=== PATIENT | female | born 1995 | race American Indian/Alaskan Native ===

== ENCOUNTER 2022-07-29 18:56 | Emergency (ER) | payer OTHER ==
[2022-07-29] MEDS ORDERED: Iopamidol 612 MG/ML 100 ML Bottle IVPUSH ONE (19:40)
[2022-07-29 19:41] LABS: METHAMPHETAMINES,URINE NEGATIVE (NEGATIVE)
[2022-07-29 19:42] LABS: AMPHETAMINES,URINE NEGATIVE (NEGATIVE); BARBITURATES,URINE NEGATIVE (NEGATIVE); BENZODIAZEPINE,URINE NEGATIVE (NEGATIVE); MDMA (ECSTASY), URINE NEGATIVE (NEGATIVE); METHADONE,URINE NEGATIVE (NEGATIVE); OPIATES,URINE NEGATIVE (NEGATIVE); OXYCODONE,URINE NEGATIVE (NEGATIVE); PHENCYCLIDINE,URINE NEGATIVE (NEGATIVE); TCA,URINE NEGATIVE (NEGATIVE)
[2022-07-29 19:49] LABS: ANION GAP 13.5 mEq/L (7-13); CHLORIDE,CL 103 mmol/L (98-107); SODIUM,NA 139 mmol/L (136-145)
[2022-07-29 19:54] LABS: ESTIMATED GFR 128 mL/min (>=60)
[2022-07-29] MEDS ORDERED: fentaNYL 100 MCG/2 ML SDV IVPUSH ONE ×2 (20:34→20:52)
[2022-07-29] MEDS ORDERED: LORazepam 2 MG/ML SDV IVPUSH ONE ×2 (20:35→20:53)
[2022-07-29] MEDS ORDERED: metroNIDAZOLE 250 MG Tab PO ONE ×2 (21:35→22:45)
== END 2022-07-29 23:20 | disposition home or self-care (01) ==
LOC: DL.ED 18:56
DX: S30.1XXA Contusion of abdominal wall, initial encounter (principal); R74.01 Elevation of levels of liver transaminase levels; A59.00 Urogenital trichomoniasis, unspecified; V49.50XA Passenger injured in collision with unspecified motor vehicles in traffic accident, initial encounter; Y92.410 Unspecified street and highway as the place of occurrence of the external cause
CPT/HCPCS: 36415; 70450; 71270; 72125; 74178; 80053; 80305; 81001; 81025; 83735; 85025; 87086; 96374; 96375; 99284; A9270; C1758; J2060; J3010; Q9967

== ENCOUNTER 2022-07-30 11:37 | Emergency (ER) | payer OTHER ==
[2022-07-30] MEDS ORDERED: Orphenadrine 60 MG/2 ML Inj IM ONE (12:04)
[2022-07-30] MEDS ORDERED: Ketorolac 30 MG/ML SDV IM ONE (12:04)
[2022-07-30] MEDS ORDERED: traMADol 50 MG Tab PO ONE (12:05)
== END 2022-07-30 12:34 | disposition home or self-care (01) ==
LOC: DL.ED 11:37
DX: S30.0XXA Contusion of lower back and pelvis, initial encounter (principal); S10.93XA Contusion of unspecified part of neck, initial encounter; F17.210 Nicotine dependence, cigarettes, uncomplicated; Z88.8 Allergy status to other drugs, medicaments and biological substances; V49.40XA Driver injured in collision with unspecified motor vehicles in traffic accident, initial encounter; Y92.410 Unspecified street and highway as the place of occurrence of the external cause
CPT/HCPCS: 96372; 99283; A9270; J1885; J2360

== ENCOUNTER 2023-09-02 13:49 | Emergency (ER) | payer OTHER ==
[2023-09-02 14:52] LABS: CORONAVIRUS COVID-19 NAA NEGATIVE (NEGATIVE); INFLUENZA A NAA NEGATIVE (NEGATIVE); INFLUENZA B NAA NEGATIVE (NEGATIVE); RESPIRATORY SYNCYTIAL VIR NAA NEGATIVE (NEGATIVE)
== END 2023-09-02 15:18 | disposition home or self-care (01) ==
LOC: DL.ED 13:49
DX: B34.9 Viral infection, unspecified (principal); Z88.1 Allergy status to other antibiotic agents; Z86.16 Personal history of COVID-19
CPT/HCPCS: 0241U; 99283

== ENCOUNTER 2023-11-01 22:48 | Emergency (ER) | payer SELFPAY ==
[2023-11-01] MEDS ORDERED: Penicillin V Potassium 250 MG Tab PO ONE (23:45)
[2023-11-01] MEDS: Lidocaine 1% with EPINEPHrine 1:100,000 20 ML MDV INJECT ONE (23:48)
[2023-11-01] MEDS: Bupivacaine 0.5%/EPINEPHrine 1:200,000 10 ML SDV INJECT ONE (23:48)
[2023-11-02] MEDS: Penicillin V Potassium 250 MG Tab PO ONE (00:07)
[2023-11-02] MEDS: Take Home: Amoxicillin/Clavulanate K 875-125 MG Tab, 6 Tab Pack PO ONE (00:15)
[2023-11-02] MEDS ORDERED: Penicillin V Potassium 250 MG Tab PO ONE (23:49)
== END 2023-11-02 00:19 | disposition home or self-care (01) ==
LOC: DL.ED 22:48
DX: K02.9 Dental caries, unspecified (principal); F17.210 Nicotine dependence, cigarettes, uncomplicated; Z88.1 Allergy status to other antibiotic agents; Z86.16 Personal history of COVID-19
CPT/HCPCS: 64400; 99282; A9270; J3490

== ENCOUNTER 2023-11-25 08:09 | Emergency (ER) | payer SELFPAY ==
[2023-11-25] MEDS: Sodium Chloride 0.9% 10 ML Syringe FLUSH PRN (08:57)
[2023-11-25] MEDS: Sodium Chloride 0.9% 1,000 ML IV ONE (08:57)
[2023-11-25] MEDS: Ondansetron 4 MG/2 ML SDV IV ONE (08:57)
[2023-11-25 08:58] LABS: CORONAVIRUS COVID-19 NAA NEGATIVE (NEGATIVE); INFLUENZA A NAA NEGATIVE (NEGATIVE); INFLUENZA B NAA NEGATIVE (NEGATIVE); RESPIRATORY SYNCYTIAL VIR NAA NEGATIVE (NEGATIVE)
[2023-11-25 09:01] LABS: BASOPHILS PERCENT AUTO 0.3 % (0.0-1.0); EOSINOPHILS PERCENT AUTO 0.6 % (1.0-3.0); HEMATOCRIT 40.7 % (37.0-47.0); LYMPHOCYTES PERCENT AUTO 30.8 % (20.5-50.1); MEAN CORPUSCULAR HEMOGLOBIN 30.6 pg (27.0-34.0); MEAN CORPUSCULAR HGB CONC 34.4 g/dL (33.0-35.0); MEAN CORPUSCULAR VOLUME 89.1 fL (80-100); MONOCYTES PERCENT AUTO 7.8 % (2-8); NEUTROPHILS PERCENT AUTO 60.5 % (42.2-75.2); PLATELET COUNT,PLT 190 10^3/uL (150-450); RED BLOOD CELL COUNT 4.57 10^6/uL (4.2-5.4); WHITE BLOOD CELL COUNT,WBC 7.9 10^3/uL (5.0-10.0)
[2023-11-25 09:22] LABS: A/G RATIO 1.2; ALBUMIN 4.2 g/dL (3.4-5.0); ANION GAP 15.6 mEq/L (7-13); BILIRUBIN TOTAL 0.7 mg/dL (0.2-1.0); BUN/CREATININE RATIO 15.5 (No establ ref range); CALCIUM 8.9 mg/dL (8.5-10.1); CREATININE 0.58 mg/dL (0.55-1.02); EST CRCL DRUG DOSING (CG) 129.94 mL/min; POTASSIUM,K 3.6 mmol/L (3.5-5.1); PROTEIN TOTAL,TP 7.7 g/dL (6.4-8.2)
[2023-11-25 09:39] LABS: APPEARANCE,URINE CLEAR (CLEAR); BILIRUBIN,URINE NEGATIVE (NEGATIVE); COLOR,URINE YELLOW (YELLOW); GLUCOSE,URINE NEGATIVE (NEGATIVE); KETONES,URINE NEGATIVE (NEGATIVE); LEUKOCYTE ESTERASE,URINE NEGATIVE (NEGATIVE); NITRITE,URINE NEGATIVE (NEGATIVE); OCCULT BLOOD,URINE MODERATE (NEGATIVE); PH,URINE 6.5 (5.0-9.0); PROTEIN,URINE NEGATIVE (NEGATIVE); UROBILINOGEN,URINE 0.2 mg/dL (0.2-1.0)
[2023-11-25 09:49] LABS: AMORPHOUS SEDIMENT,URINE FEW /HPF (NOT SEEN); BACTERIA,URINE FEW /HPF (0-FEW/HPF); EPITHELIAL CELLS,URINE MODERATE /HPF (NOT SEEN); MUCUS,URINE MODERATE /LPF (NOT SEEN); RBC,URINE 0-5 /HPF (0-5); WBC,URINE NOT SEEN /HPF (0-5/HPF)
== END 2023-11-25 09:58 | disposition home or self-care (01) ==
LOC: DL.ED 08:09
DX: K52.9 Noninfective gastroenteritis and colitis, unspecified (principal); Z88.1 Allergy status to other antibiotic agents; Z86.16 Personal history of COVID-19
CPT/HCPCS: 0241U; 36415; 80053; 81001; 81025; 85025; 87081; 87430; 96361; 96374; 99283; 99284-25; J2405; J3490; J7030

== ENCOUNTER 2024-01-16 18:18 | Emergency (ER) | payer SELFPAY ==
[2024-01-16] MEDS: Ketorolac 30 MG/ML SDV IM ONE (18:36)
[2024-01-16] MEDS: Amoxicillin/Clavulanate K 875-125 MG Tab PO ONE (18:43)
== END 2024-01-16 18:50 | disposition home or self-care (01) ==
LOC: DL.ED 18:18
DX: K04.7 Periapical abscess without sinus (principal); K05.10 Chronic gingivitis, plaque induced; K66.9 Disorder of peritoneum, unspecified; Z86.16 Personal history of COVID-19; Z88.8 Allergy status to other drugs, medicaments and biological substances
CPT/HCPCS: 96372; 99282; A9270; J1885

== ENCOUNTER 2024-04-21 19:47 | Emergency (ER) | payer MEDICAID ==
[2024-04-21 20:01] LABS: APPEARANCE,URINE CLEAR (CLEAR); BILIRUBIN,URINE NEGATIVE (NEGATIVE); COLOR,URINE YELLOW (YELLOW); GLUCOSE,URINE NEGATIVE (NEGATIVE); KETONES,URINE NEGATIVE (NEGATIVE); LEUKOCYTE ESTERASE,URINE TRACE (NEGATIVE); NITRITE,URINE NEGATIVE (NEGATIVE); OCCULT BLOOD,URINE NEGATIVE (NEGATIVE); PH,URINE 6.5 (5.0-9.0); PROTEIN,URINE NEGATIVE (NEGATIVE); UROBILINOGEN,URINE 0.2 mg/dL (0.2-1.0)
[2024-04-21 20:15] LABS: BACTERIA,URINE FEW /HPF (0-FEW/HPF); EPITHELIAL CELLS,URINE FEW /HPF (NOT SEEN); RBC,URINE NOT SEEN /HPF (0-5); WBC,URINE 0-5 /HPF (0-5/HPF)
[2024-04-21 20:16] LABS: MUCUS,URINE FEW /LPF (NOT SEEN)
== END 2024-04-21 20:39 | disposition home or self-care (01) ==
LOC: DL.ED 19:47
DX: H92.11 Otorrhea, right ear (principal); Z86.16 Personal history of COVID-19; Z88.1 Allergy status to other antibiotic agents
CPT/HCPCS: 81001; 87086; 87491; 87563; 87591; 99283

== ENCOUNTER 2024-05-10 23:34 | Emergency (ER) | payer MEDICAID ==
[2024-05-11] MEDS: Take Home: Lidocaine 2% Viscous Solution 15 ML UD, 2 Cup Pack PO ONE (00:13)
[2024-05-11] MEDS: Amoxicillin/Clavulanate K 875-125 MG Tab PO ONE (00:13)
== END 2024-05-11 00:23 | disposition home or self-care (01) ==
LOC: DL.ED 23:34
DX: K02.9 Dental caries, unspecified (principal); Z88.8 Allergy status to other drugs, medicaments and biological substances
CPT/HCPCS: 99282; A9270